=== PATIENT | male | born 1995 | race Asian ===

== ENCOUNTER → 2023-03-09 | Outpatient (CLI) | payer OTHER | LOC: M PLAIMG 06:45 | PROVIDERS: ATTEND Physician Assistant | DX: M25.531 Pain in right wrist (principal); M67.431 Ganglion, right wrist ==

== ENCOUNTER → 2024-05-10 | Outpatient (CLI) | payer OTHER | LOC: M RAD 13:41 | PROVIDERS: ATTEND Urology | DX: N50.0 Atrophy of testis (principal) ==